=== PATIENT | male | born 1965 | race Caucasian/White ===

== ENCOUNTER 2017-09-01 16:52 | Emergency (ER) | payer SELFPAY ==
[~2017-09-01] VITALS: Ht 182.9 cm; Wt 79.5 kg
[2017-09-01 16:55] VITALS: BP 119/83
== END 2017-09-01 17:12 | disposition left against medical advice (07) ==
LOC: ED 17:10
DX: F11.23 Opioid dependence with withdrawal (principal)

== ENCOUNTER 2017-09-02 23:12 | Emergency (ER) | payer OTHER ==
[~2017-09-02] VITALS: Ht 182.9 cm; Wt 78.2 kg
[2017-09-02] MEDS ORDERED: THIAMINE 100MG TABLET ONE (23:59)
[2017-09-02] MEDS ORDERED: ONDANSETRON ODT 4 MG ONE (23:59)
[2017-09-03] MEDS ORDERED: THIAMINE 100MG TABLET PO ONE
[2017-09-03] MEDS ORDERED: ONDANSETRON ODT 4 MG PO ONE
[2017-09-03 00:08] LABS: BASOPHILS # (AUTO) 0.04 x10^3/uL (0-0.1); BASOPHILS % (AUTO) 0 % (0-1); EOSINOPHILS # (AUTO) 0.13 x10^3/uL (0-0.4); EOSINOPHILS % (AUTO) 1 % (1-7); LYMPHOCYTES # (AUTO) 1.61 x10^3/uL (1-3.4); LYMPHOCYTES % (AUTO) 17 % (22-44); MD NO; MEAN CORPUSCULAR HEMOGLOBIN 30.7 pg (27.5-34.5); MEAN CORPUSCULAR HGB CONC 33.3 g/dL (33.2-36.2); MEAN CORPUSCULAR VOLUME 92.1 fL (81-97); MEAN PLATELET VOLUME 8.5 fL (7.4-10.4); MONOCYTES # (AUTO) 0.65 x10^3/uL (0.2-0.8); MONOCYTES % (AUTO) 7 % (2-9); NEUTROPHILS # (AUTO) 6.82 x10^3/uL (1.8-6.8); NEUTROPHILS % (AUTO) 74 % (42-75); PLATELET COUNT 250 x10^3/uL (130-400); RED BLOOD COUNT 5.09 x10^6/uL (4.38-5.82); RED CELL DISTRIBUTION WIDTH 13.1 % (9.4-14.8)
[2017-09-03 00:20] LABS: ALANINE AMINOTRANSFERASE 22 U/L (12-78); ALBUMIN 3.7 g/dL (3.4-5.0); ANION GAP 9 mmol/L (5-15); CALCIUM 8.5 mg/dL (8.5-10.1); CHLORIDE 105 mmol/L (98-107); CREATININE 1.12 mg/dL (0.7-1.3)
[2017-09-03 00:22] LABS: ALKALINE PHOSPHATASE 40 U/L (45-117); BILIRUBIN,TOTAL 0.7 mg/dL (0.2-1.0); TOTAL PROTEIN 6.7 g/dL (6.4-8.2)
[2017-09-03 00:23] LABS: ACETAMINOPHEN < 2 mcg/mL (10-30); SALICYLATE LEVEL < 1.7 mg/dL (2.8-20.0)
[2017-09-03 00:37] LABS: AMPHETAMINE SCREEN, URINE Negative (Negative); BARBITURATE SCREEN, URINE Negative (Negative); BENZODIAZEPINE SCREEN, URINE Negative (Negative); CANNABINOID SCREEN, URINE Positive (Negative); COCAINE SCREEN, URINE Negative (Negative); METHADONE SCREEN, URINE Negative (Negative); OPIATE SCREEN, URINE Negative (Negative)
[2017-09-03 01:33] VITALS: BP 118/65
== END 2017-09-03 02:15 | disposition home or self-care (01) ==
LOC: ED 23:59
DX: F11.23 Opioid dependence with withdrawal (principal); F41.1 Generalized anxiety disorder; G25.81 Restless legs syndrome; Z72.89 Other problems related to lifestyle; Z60.9 Problem related to social environment, unspecified; Z91.14 Patient's other noncompliance with medication regimen
CPT/HCPCS: 36415; 80053; 80307; 80329; 85025; 99284; Q0162; G0480

== ENCOUNTER 2020-10-14 10:57 | Emergency (ER) | payer SELFPAY ==
[~2020-10-14] VITALS: Ht 182.9 cm; Wt 86.0 kg
--- NOTE | 2020-10-14 11:27 | NUR ---
PT AMBULATORY TO ROOM 33 W/ C/O ABD PAIN X 15-20 HOURS. PT STATES HX GI ULCERS AND THAT THIS FEELS SIMILAR BUT MORE INTENSE. PT STATES HE HAS HAD N/V/D X 15-20 HOURS. PT ALSO C/O SOB "IT'S ALWAYS A LITTLE BAD BUT NOW ITS WORSE". PT RESTING ON GURNEY. NADN. SPEAKING IN FULL SENTENCES. VSS. WARM BLANKET PROVIDED. CALL SOPHY SEVERINO.
--- NOTE | 2020-10-14 11:40 | NUR ---
PT AWARE OF NEED FOR UA SAMPLE. STATES HE CANNOT URINATE AT THIS TIME. URINAL LEFT AT BEDSIDE.
[2020-10-14] MEDS ORDERED: MORPHINE SULFATE 4 MG/ML, 1ML ONE ×2 (12:11→13:39)
[2020-10-14] MEDS ORDERED: ONDANSETRON 2MG/ML, 2ML ONE ×2 (12:11→13:39)
[2020-10-14] MEDS ORDERED: MAALOX/HYOSCYAMINE/LIDOCAINE 45 ML BTL ONE (12:12)
[2020-10-14] MEDS: MORPHINE SULFATE 4 MG/ML, 1ML IVPush PRN ×2 (12:13→13:42)
[2020-10-14] MEDS ORDERED: SODIUM CHLORIDE 0.9% 1,000ML IVBOLUS ONE (12:30)
[2020-10-14] MEDS ORDERED: ONDANSETRON 2MG/ML, 2ML IVPush ONE ×2 (12:30→13:30)
[2020-10-14] MEDS ORDERED: MAALOX/HYOSCYAMINE/LIDOCAINE 45 ML BTL PO ONE (12:30)
[2020-10-14 12:42] LABS: BASOPHILS % (AUTO) 0 % (0-1); EOSINOPHILS % (AUTO) 1 % (1-7); LYMPHOCYTES % (AUTO) 9 % (22-44); MEAN CORPUSCULAR HEMOGLOBIN 30.9 pg (27.5-34.5); MEAN PLATELET VOLUME 9.2 fL (7.4-10.4); MONOCYTES % (AUTO) 4 % (2-9); NEUTROPHILS % (AUTO) 86 % (42-75); PLATELET COUNT 249 x10^3/uL (130-400); RED BLOOD COUNT 5.66 x10^6/uL (4.38-5.82); RED CELL DISTRIBUTION WIDTH 12.4 % (9.4-14.8)
--- NOTE | 2020-10-14 12:43 | NUR ---
PT RESTING ON GURNEY. NADN. L[facility]SON.
[2020-10-14 12:51] LABS: ALANINE AMINOTRANSFERASE 38 U/L (12-78); ALBUMIN 4.2 g/dL (3.4-5.0); CALCIUM 9.5 mg/dL (8.5-10.1)
[2020-10-14 12:54] LABS: ALKALINE PHOSPHATASE 49 U/L (45-117); BILIRUBIN,TOTAL 0.8 mg/dL (0.2-1.0); CREATININE 1.16 mg/dL (0.7-1.3); TOTAL PROTEIN 8.1 g/dL (6.4-8.2)
[2020-10-14 12:56] LABS: ANION GAP 5 mmol/L (5-15); CHLORIDE 103 mmol/L (98-107)
--- NOTE | 2020-10-14 13:28 | NUR ---
NANY BECKMAN AT BEDSIDE FOR REV-EVAL.
--- NOTE | 2020-10-14 13:31 | NUR ---
[facility] REST[facility] ON [facility]. PT TO BE MEDICATED PER MAR PRIOR TO DC.
[2020-10-14 13:54] VITALS: BP 128/79
== END 2020-10-14 14:05 | disposition home or self-care (01) ==
LOC: ED 12:00
DX: R10.84 Generalized abdominal pain (principal); R11.2 Nausea with vomiting, unspecified; R19.7 Diarrhea, unspecified; R94.31 Abnormal electrocardiogram [ECG] [EKG]
CPT/HCPCS: 36415; 80053; 83690; 85025; 93005; 96361; 96374; 96375; 96376; 99285; J2270; J2405; J7030